=== PATIENT | male | born 1960 | race African-American/Black ===

== ENCOUNTER 2016-09-06 00:27 | Emergency (ER) | payer OTHER ==
[~2016-09-06] VITALS: Ht 175.3 cm; Wt 88.5 kg
[~2016-09-06 00:27] MED LIST: AMLODIPINE BESYL5 MG ORAL; APRISO0.375 GM PO; DELZICOL400 MG PO; HYDROCHLOROTHIA25 MG ORAL; IBUPROFEN600 MG ORAL; NAPROSYN500 M1 ORAL
[2016-09-06 00:35] VITALS: BP 117/81
[2016-09-06] MEDS ORDERED: Ketorolac 30mg Inj IV ONE (01:15)
[2016-09-06] MEDS ORDERED: Norco 5mg/325mg tab ORAL ONE (01:15)
[2016-09-06 01:47] LABS: BASOPHILS % (AUTO) 2.6 % (0.0-2.0); EOSINOPHILS % (AUTO) 0.3 % (0.0-3.0); LYMPHOCYTES % (AUTO) 23.1 % (20.0-45.0); MEAN CORPUSCULAR HEMOGLOBIN 27.8 PG (27.0-31.0); MEAN CORPUSCULAR VOLUME 82 FL (80-99); MEAN PLATELET VOLUME 6.4 FL (6.5-10.1); MONOCYTES % (AUTO) 14.6 % (1.0-10.0); NEUTROPHILS % (AUTO) 59.4 % (45.0-75.0); PLATELET COUNT 439 K/UL (150-450); RED BLOOD COUNT 4.64 M/UL (4.70-6.10); WHITE BLOOD COUNT 4.4 K/UL (4.8-10.8)
[2016-09-06 01:50] LABS: APPEARANCE,URINE CLEAR; KETONES,URINE 2+ (NEGATIVE); LEUKOCYTE ESTERASE ,URINE NEGATIVE (NEGATIVE); NITRITE,URINE NEGATIVE (NEGATIVE); PH,URINE 5 (4.5-8.0); UROBILINOGEN,URINE NORMAL MG/DL (0.0-1.0)
[2016-09-06 01:52] LABS: PROTEIN,URINE NEGATIVE (NEGATIVE)
[2016-09-06 02:10] LABS: ALANINE AMINOTRANSFERASE 25 U/L (3-41); ALBUMIN/GLOBULIN RATIO 1.1 (1.0-2.7); ANION GAP 19 (5-15); ASPARTATE AMINO TRANSFERASE 24 U/L (5-40); CARBON DIOXIDE 24 mEQ/L (20-30); CHLORIDE 94 mEQ/L (98-107); CREATININE 1.1 mg/dL (0.7-1.2); GLOMERULAR FILTRATION RATE > 60 mL/min (>60); HEMOLYSIS 0; LIPASE 25 U/L (< 60); POTASSIUM 3.8 mEQ/L (3.4-4.9); SODIUM 137 mEQ/L (135-145); TOTAL PROTEIN 7.5 g/dL (6.6-8.7)
[2016-09-06 02:12] LABS: TROPONIN I < 0.30 ng/mL (<=0.30)
[2016-09-06 02:35] VITALS: BP 107/68
[2016-09-06] MEDS ORDERED: NORCO 5-325 TA1 EAC1 ORAL (03:04)
[2016-09-06] MEDS ORDERED: PREDNISONE20 M1 PO (03:04)
[2016-09-06 03:16] VITALS: BP 109/79
--- NOTE | 2016-09-06 20:39 | Emergency Room Report ---
History of Present Illness General Chief Complaint: Abdominal Pain Source: Patient Present Illness HPI Patient is a 55-year-old male who presented after increased abdominal pain for several months. Patient having increased cramping sensation diffusely throughout his abdomen. Patient denied any fever. Having some increased bloody stools. Patient had prior history of Crohn's disease. The patient had a previous improvement with steroids. The patient denied any fever. He had no change in pain with ambulation. The patient had not been vomiting. Allergies: Coded Allergies: No Known Allergies (Unverified , 09/06/16) Patient History Past Medical History: see triage record Reviewed Nursing Documentation: PMH: Agreed, PSxH: Agreed Nursing Documentation-PMH Past Medical History: No History, Except For Hx Hypertension: Yes Hx Gastrointestinal Problems: Yes - Crohn's disease Review of Systems All Other Systems: negative except mentioned in HPI Physical Exam Vital Signs Date Time Temp Pulse Resp B/P Pulse Ox O2 Delivery O2 Flow Rate FiO2 09/06/16 00:31 98.8 104 16 117/81 97 Room Air Sp02 EP Interpretation: reviewed, normal General Appearance: normal inspection, well appearing, no apparent distress, alert, GCS 15 Head: atraumatic ENT: normal ENT inspection, hearing grossly normal, normal voice Neck: normal inspection, full range of motion, supple, no bony tend Respiratory: normal inspection, lungs clear, normal breath sounds, no respiratory distress, no retraction, no wheezing Cardiovascular #1: regular rate, rhythm, no edema Gastrointestinal: normal inspection, normal bowel sounds, non tender, soft, no guarding, no hernia Genitourinary: no CVA tenderness Musculoskeletal: normal inspection, back normal, normal range of motion Neurologic: normal inspection, alert, oriented x3, responsive, night nurse III-XII nml as tested, speech normal Psychiatric: normal inspection, judgement/insight normal, mood/affect normal Skin: normal inspection, normal color, no rash Medical Decision Making Diagnostic Impression: Primary Impression: Abdominal pain Additional Impression: Crohn's disease ER Course Patient presented for abdominal pain. Differential diagnoses included ischemic bowel, appendicitis, perforated viscus, abdominal aortic aneurysm, inferior myocardial infarction, viral gastroenteritis Because of complexity of patient's case laboratory testing and imaging studies were ordered. I laboratory testing showed a minimal anemia. I given the patient's prolonged time of symptoms as he states he's had bloody stools for the past 3 months is unlikely patient has significant blood loss at this time. Patient is advised followup with public health dietitian. Patient was given Prescription for steroids. The patient is advised to follow up with primary care doctor in 1-2 days. Patient is advised to return if any worsening condition or if any changes in status that are concerning. Labs Test 09/06/16 01:33 White Blood Count 4.4 K/UL (4.8-10.8) Red Blood Count 4.64 M/UL (4.70-6.10) Hemoglobin 12.9 G/DL (14.2-18.0) Hematocrit 37.9 % (42.0-52.0) Mean Corpuscular Volume 82 FL (80-99) Mean Corpuscular Hemoglobin 27.8 PG (27.0-31.0) Mean Corpuscular Hemoglobin Concent 34.0 G/DL (32.0-36.0) Red Cell Distribution Width 13.0 % (11.6-14.8) Platelet Count 439 K/UL (150-450) Mean Platelet Volume 6.4 FL (6.5-10.1) Neutrophils (%) (Auto) 59.4 % (45.0-75.0) Lymphocytes (%) (Auto) 23.1 % (20.0-45.0) Monocytes (%) (Auto) 14.6 % (1.0-10.0) Eosinophils (%) (Auto) 0.3 % (0.0-3.0) Basophils (%) (Auto) 2.6 % (0.0-2.0) Urine Color Yellow Urine Appearance Clear Urine pH 5 (4.5-8.0) Urine Specific [place] 1.025 (1.005-1.035) Urine Protein Negative (NEGATIVE) Urine Glucose (UA) Negative (NEGATIVE) Urine Ketones 2+ (NEGATIVE) Urine Occult Blood Negative (NEGATIVE) Urine Nitrite Negative (NEGATIVE) Urine Bilirubin Negative (NEGATIVE) Urine Urobilinogen Normal MG/DL (0.0-1.0) Urine Leukocyte Esterase Negative (NEGATIVE) Sodium Level 137 mEQ/L (135-145) Potassium Level 3.8 mEQ/L (3.4-4.9) Chloride Level 94 mEQ/L (98-107) Carbon Dioxide Level 24 mEQ/L (20-30) Anion Gap 19 (5-15) Blood Urea Nitrogen 12 mg/dL (7-23) Creatinine 1.1 mg/dL (0.7-1.2) Estimat Glomerular Filtration Rate > 60 mL/min (>60) Glucose Level 105 mg/dL (74-106) Calcium Level 9.0 mg/dL (8.6-10.2) Total Bilirubin 0.2 mg/dL (0.0-1.2) Aspartate Amino Transf (AST/SGOT) 24 U/L (5-40) Alanine Aminotransferase (ALT/SGPT) 25 U/L (3-41) Alkaline Phosphatase 57 U/L (40-129) Troponin I < 0.30 ng/mL (<=0.30) Total Protein 7.5 g/dL (6.6-8.7) Albumin 4.0 g/dL (3.5-5.2) Globulin 3.5 g/dL Albumin/Globulin Ratio 1.1 (1.0-2.7) Lipase 25 U/L (< 60) Last Vital Signs Date Time Temp Pulse Resp B/P Pulse Ox O2 Delivery O2 Flow Rate FiO2 09/06/16 03:16 98.7 97 21 109/79 98 Room Air Status: improved Disposition: HOME, SELF-CARE Condition: Stable Scripts Hydrocodone Bit/Acetaminophen 5-325* (NORCO 5-325 TABLET*) 1 Each Tablet 1 TAB ORAL Q4H Y for For Pain, #14 TAB Prov: Flash Kelley 09/06/16 Prednisone (Prednisone) 20 Mg Tablet 40 MG PO DAILY, #10 TAB Prov: Flash Kelley 09/06/16 Referrals: [facility],REFERRING (PCP) Patient Instructions: Abdominal Pain, Adult Flash Kelley September 06, 2016 20:39
== END 2016-09-06 03:16 | disposition home or self-care (01) ==
LOC: EMR 01:30
DX: K50.90 Crohn's disease, unspecified, without complications (principal); I10 Essential (primary) hypertension
CPT/HCPCS: 36415; 80053; 81003; 83690; 84484; 85025; 96374; 96375; 99284; J1885

== ENCOUNTER 2018-07-11 23:59 | Emergency (ER) | payer OTHER ==
[~2018-07-11] VITALS: Ht 175.3 cm; Wt 93.0 kg
[~2018-07-11 23:59] MED LIST changes: +NORCO 5-325 TA1 EAC1 ORAL; +PREDNISONE20 M1 PO
[2018-07-12 00:16] VITALS: BP 134/93
--- NOTE | 2018-07-12 00:19 | NUR ---
ED Nurse Note: pt walked in c/o abdominal pain,diarrhea and vomiting. pt stated he is having crohn's disease flare up. pt stated he went on [facility] saturday and went back there 07/09/18 and was advise to go to ed if the symptoms worsen. pt neuro assessment is alert and oriented times 4 and is able to walk with steady gait. pt cardiact peramitiers are within normal limits except for HR at 115. pt eyes do not appear sunken and radial pulse is palpable. Pt S1 and S2 noted. pt respritory perameters are within normal limits with all lung sounds clear on all quadrats. no adventicious sounds noted. pt abdominal sounds sounds hyper active on all four quadrants. pt states he has an 8/10 abdominal pain that radiates to the lower abdomen.
[2018-07-12] MEDS ORDERED: Morphine Sulfate 4mg/ml Inj (IV USE ONLY) IVP ONE (00:45)
[2018-07-12] MEDS ORDERED: Solu-MEDROL 125mg Inj IVP ONE (00:45)
[2018-07-12 01:03] LABS: BASOPHILS % (AUTO) 3.3 % (0.0-2.0); EOSINOPHILS % (AUTO) 2.3 % (0.0-3.0); HEMATOCRIT 46.3 % (42.0-52.0); HEMOGLOBIN 15.2 G/DL (14.2-18.0); LYMPHOCYTES % (AUTO) 23.2 % (20.0-45.0); MEAN CORPUSCULAR VOLUME 82 FL (80-99); MONOCYTES % (AUTO) 13.8 % (1.0-10.0); NEUTROPHILS % (AUTO) 57.5 % (45.0-75.0); PLATELET COUNT 495 K/UL (150-450); RED BLOOD COUNT 5.61 M/UL (4.70-6.10); RED CELL DISTRIBUTION WIDTH 13.1 % (11.6-14.8); WHITE BLOOD COUNT 7.6 K/UL (4.8-10.8)
[2018-07-12 01:12] LABS: APPEARANCE,URINE SLIGHTLY CLOUDY; BILIRUBIN, URINE 1+ (NEGATIVE); GLUCOSE, URINE (UA) NEGATIVE (NEGATIVE); KETONES,URINE 1+ (NEGATIVE); LEUKOCYTE ESTERASE ,URINE 1+ (NEGATIVE); NITRITE,URINE NEGATIVE (NEGATIVE); PH,URINE 5 (4.5-8.0); PROTEIN,URINE 2+ (NEGATIVE); UROBILINOGEN,URINE 1 MG/DL (0.0-1.0)
[2018-07-12 01:34] LABS: ALANINE AMINOTRANSFERASE 68 U/L (12-78); ALBUMIN 3.9 G/DL (3.4-5.0); ALBUMIN/GLOBULIN RATIO 0.7 (1.0-2.7); ALKALINE PHOSPHATASE 124 U/L (46-116); ANION GAP 14 mmol/L (5-15); ASPARTATE AMINO TRANSFERASE 31 U/L (15-37); BILIRUBIN,TOTAL 0.5 MG/DL (0.2-1.0); BLOOD UREA NITROGEN 14 mg/dL (7-18); CALCIUM 10.1 MG/DL (8.5-10.1); CARBON DIOXIDE 24 MMOL/L (21-32); CHLORIDE 95 MMOL/L (98-107); CREATININE 1.3 MG/DL (0.55-1.30); POTASSIUM 3.8 MMOL/L (3.5-5.1); SODIUM 133 MMOL/L (136-145)
[2018-07-12 01:36] LABS: COLOR,URINE YELLOW
--- NOTE | 2018-07-12 02:04 | Diagnostic Imaging Report ---
EXAM: CT Abdomen and Pelvis Without Intravenous Contrast CLINICAL HISTORY: ABD PAIN TECHNIQUE: Axial computed tomography images of the abdomen and pelvis without intravenous contrast. CTDI is 0.15, 23.63 mGy and DLP is 1289 mGy-cm. One or more of the following dose reduction techniques were used: automated exposure control, adjustment of the mA and/or kV according to patient size, use of iterative reconstruction technique. Coronal and sagittal reformatted images were created and reviewed. COMPARISON: No relevant prior studies available. FINDINGS: Lung bases: Areas of mild linear atelectasis versus scarring at the lung bases. ABDOMEN: Liver: Nonspecific low-density lesion in the dome of the liver measuring approximately 13 mm. Evaluation is limited without IV contrast. Gallbladder and bile ducts: The gallbladder is grossly unremarkable for a noncontrast CT. No calcified stones. No ductal dilation. Pancreas: The pancreas is grossly unremarkable for a noncontrast CT. No ductal dilation. Spleen: The spleen is grossly unremarkable for a noncontrast CT. Adrenals: The adrenals are grossly unremarkable for a noncontrast CT. Kidneys and ureters: No evidence for hydronephrosis. No evidence for renal or ureteral stone. Mild bilateral perinephric stranding which may be related to chronic scarring. Stomach and bowel: Diverticulosis without evidence for diverticulitis. Evaluation of the rectosigmoid colon is limited secondary to poor distention. No definite evidence for bowel related inflammatory changes. No evidence for significant bowel loop dilation to suggest an obstructive process. PELVIS: Appendix: The appendix is mildly prominent measuring up to [address] evidence for periappendiceal inflammatory changes to suggest acute appendicitis. Bladder: The bladder is grossly unremarkable. No stones. Reproductive: Unremarkable as visualized. ABDOMEN and PELVIS: Intraperitoneal space: No free intraperitoneal fluid or free intraperitoneal gas. Bones/joints: Fusion of the sacroiliac joints. Degenerative changes of the thoracolumbar spine. No acute fracture. No dislocation. Soft tissues: Small left inguinal hernia containing fat only versus a spermatic cord lipoma. Vasculature: Unremarkable. No abdominal aortic aneurysm. Lymph nodes: Multiple mildly prominent nonspecific mesenteric lymph nodes. This may be related to mesenteric adenitis. IMPRESSION: 1. No evidence for hydronephrosis. No evidence for renal or ureteral stone. 2. Multiple mildly prominent nonspecific mesenteric lymph nodes. This may be related to mesenteric adenitis. 3. Diverticulosis without evidence for diverticulitis.
[2018-07-12 02:08] VITALS: BP 140/94
[2018-07-12] MEDS ORDERED: PREDNISONE20 MG ORAL (02:16)
[2018-07-12] MEDS ORDERED: HYDROCODON-ACE1 EA15 ORAL (02:16)
--- NOTE | 2018-07-12 02:16 | Emergency Room Report ---
History of Present Illness General Chief Complaint: Abdominal Pain Source: Patient, Medical Record Present Illness HPI Is a 57-year-old male with a history of Crohn disease. He presents with chief complaint of Crohn's exacerbation with abdominal pain. Onset for 8-9 days now. He has multiple episode of diarrhea with some blood now. Cramping pain. Pain is 8 out of 10. Does have occasional nausea and vomiting. Similar symptom in the past. He just got authorization to see his GI doctor again. His doctor put him on Bactrim. Worse with movement and palpation. Better with rest. Allergies: Coded Allergies: No Known Allergies (Unverified , 09/06/16) Patient History Past Medical History: see triage record, old chart reviewed, other - Crohn's Past Surgical History: other Pertinent Family History: none Social History: Denies: smoking Immunizations: other Reviewed Nursing Documentation: PMH: Agreed; PSxH: Agreed Nursing Documentation-PMH Hx Hypertension: Yes Hx Gastrointestinal Problems: Yes - Crohn's disease Review of Systems Eye: Denies: eye pain, blurred vision ENT: Denies: ear pain, nose congestion, throat swelling Respiratory: Denies: cough, shortness of breath Cardiovascular: Denies: chest pain, palpitations Gastrointestinal: Reports: abdominal pain, diarrhea, nausea, vomiting Musculoskeletal: Denies: back pain, joint pain Skin: Denies: rash Neurological: Denies: headache, numbness Endocrine: Denies: increased thirst, increased urine Hematologic/Lymphatic: Denies: easy bruising All Other Systems: negative except mentioned in HPI Physical Exam Vital Signs Date Time Temp Pulse Resp B/P (MAP) Pulse Ox O2 Delivery O2 Flow Rate FiO2 07/12/18 00:05 98.6 120 16 134/91 96 Room Air 07/12/18 00:16 99 vitals with tachycardia Sp02 EP Interpretation: reviewed, normal General Appearance: well appearing, no apparent distress, alert Head: normocephalic, atraumatic Eyes: bilateral eye PERRL, bilateral eye EOMI ENT: hearing grossly normal, normal pharynx Neck: full range of motion, supple, no meningismus Respiratory: chest non-tender, lungs clear, normal breath sounds Cardiovascular #1: regular rate, rhythm, no murmur Gastrointestinal: normal bowel sounds, no mass, no organomegaly, no bruit, non- distended, tenderness - Diffuse pain Musculoskeletal: back normal, gait/station normal, normal range of motion Neurologic: alert, oriented x3 Psychiatric: mood/affect normal Skin: warm/dry Medical Decision Making Diagnostic Impression: Primary Impression: Crohn's disease Qualified Codes: K50.90 - Crohn's disease, unspecified, without complications Additional Impression: Abdominal pain Qualified Codes: R10.84 - Generalized abdominal pain ER Course Patient with exacerbation of his Crohn disease. CT scan without any perforation. Heart rate normalized after IV fluid and pain medication. He felt better now. We'll discharge home. Dose of steroids given here. Lab Results Impression labs unremarkable CT/MRI/US Diagnostic Results CT/MRI/US Diagnostic Results : Imaging Test Ordered: CT abdomen and pelvis Impression Read by radiologist. Prominent mesenteric lymph nodes. Diverticulosis without diverticulitis. No perforation. Last Vital Signs Date Time Temp Pulse Resp B/P (MAP) Pulse Ox O2 Delivery O2 Flow Rate FiO2 07/12/18 02:08 98.6 90 16 140/94 96 Room Air 07/12/18 00:16 99 Status: improved Disposition: HOME, SELF-CARE Condition: Stable Scripts Hydrocodone/Acetaminophen 5-325* (HYDROCODONE/ACETAMINOPHEN 5-325*) 1 Each Tablet 1 TAB ORAL Q6H PRN for For Pain, #15 TAB 0 Refills Prov: Walter Garcias MD 07/12/18 Prednisone* (PREDNISONE*) 20 Mg Tablet 40 MG ORAL DAILY, #10 TAB Prov: Walter Garcias MD 07/12/18 Additional Instructions: Follow-up with your doctor in 2-3 days. Continue with the Bactrim. Return if symptom worsen. Walter Garcias MD Jul 12, 2018 02:16
[2018-07-12 02:21] VITALS: BP 140/94
--- NOTE | 2018-07-12 02:23 | NUR ---
ER DISCHARGE NOTE: Patient is cleared to be discharged per ERMD, pt is aox4, on room air, with stable vital signs. pt was given dc and prescription instructions, pt was able to verbalize understanding, pt id band and iv site removed without complications. pt is able to ambulate with steady gait. pt took all belongings.
== END 2018-07-12 02:40 | disposition home or self-care (01) ==
LOC: EMR 07-12 01:30
DX: K50.90 Crohn's disease, unspecified, without complications (principal); R10.84 Generalized abdominal pain; I10 Essential (primary) hypertension
CPT/HCPCS: 36415; 74176; 80053; 81003; 83690; 85025; 96361; 96374; 96375; 99284; J2270; J2405; J2930